=== PATIENT | male | born 1955 | race Caucasian/White ===

== ENCOUNTER 2016-07-07 19:47 | Emergency (ER) | payer BC ==
[~2016-07-07] VITALS: Ht 182.9 cm; Wt 93.8 kg
[2016-07-07] MEDS ORDERED: SODIUM CHLORIDE 0.9% 1,000ML IVBOLUS ONE (20:30)
[2016-07-07] MEDS ORDERED: SODIUM CHLORIDE FLUSH 10ML SYR IVF ONE (20:30)
[2016-07-07 20:49] LABS: HEMOGLOBIN 13.9 g/dL (13.7-18.0)
[2016-07-07 21:14] LABS: ASPARTATE AMINO TRANSFERASE 21 U/L (15-37); BLOOD UREA NITROGEN 10 mg/dL (7-18)
[2016-07-07] MEDS ORDERED: CHON250C PO (21:59)
[2016-07-07] MEDS ORDERED: UBID50CA3 PO (21:59)
[2016-07-07] MEDS ORDERED: CARV3.1212 PO (21:59)
[2016-07-07] MEDS ORDERED: LEVO125T PO (21:59)
[2016-07-07] MEDS ORDERED: ATOR40TA78 PO (21:59)
[2016-07-07] MEDS ORDERED: [UNRECOGNIZED DRUG - CODE] PO (21:59)
[2016-07-07] MEDS ORDERED: HGH PO (21:59)
[2016-07-07] MEDS ORDERED: ASPI-621 PO (21:59)
[2016-07-07] MEDS ORDERED: GARL1TAB PO (21:59)
[2016-07-07 23:11] VITALS: BP 120/80
== END 2016-07-08 00:15 | disposition home or self-care (01) ==
LOC: ED 23:33
DX: K62.5 Hemorrhage of anus and rectum (principal); I10 Essential (primary) hypertension; Z95.1 Presence of aortocoronary bypass graft
CPT/HCPCS: 36415; 80053; 85025; 85610; 85730; 99284